=== PATIENT | female | born 1980 | race African-American/Black ===

== ENCOUNTER 2017-10-26 12:54 | Emergency (ER) | payer BC ==
[~2017-10-26] VITALS: Ht 170.2 cm; Wt 77.5 kg
[2017-10-26] MEDS ORDERED: MOTRIN600 MG PO (13:28)
[2017-10-26] MEDS ORDERED: FIORICET 50-301 EAC1 PO (13:28)
[2017-10-26 13:48] VITALS: BP 145/80
== END 2017-10-26 13:48 | disposition home or self-care (01) ==
LOC: EME 12:54
DX: R51 Headache (principal)
CPT/HCPCS: 99281; 99284